=== PATIENT | female | born 1975 | race Caucasian/White ===

== ENCOUNTER → 2021-04-14 08:42 | Outpatient (BNVA) | payer BC, SELFPAY | PROVIDERS: PCP Nurse Practitioner Family; Visit Provider Physician Assistant Surgical ==

== ENCOUNTER → 2021-04-28 08:09 | Outpatient (BNVA) | payer BC, SELFPAY | PROVIDERS: PCP Nurse Practitioner Family; Visit Provider Surgery ==

== ENCOUNTER 2021-05-07 08:49 | Outpatient (REF) | payer BC, SELFPAY ==
--- NOTE | ~2021-05-07 | XR_ITS ---
EXAMINATION: XR CHEST CLINICAL INFORMATION: Obesity COMPARISON: None TECHNIQUE: 2 views of the chest were obtained. FINDINGS: No significant abnormality is noted involving the heart, lungs, mediastinum, bony thorax or soft tissues. XR/XR chest 2V IMPRESSION: Unremarkable examination.
--- NOTE | 2021-05-07 08:57 | ECG_ITS ---
Test Reason : morbid obesity Blood Pressure : / mmHG Vent. Rate : 068 BPM Atrial Rate : 068 BPM P-R Int : 148 ms QRS Dur : 076 ms QT Int : 402 ms P-R-T Axes : 026 020 003 degrees QTc Int : 427 ms Normal sinus rhythm with sinus arrhythmia Low voltage QRS Nonspecific ST abnormality Abnormal ECG No previous ECGs available Referred By: Benjamin Victoria Electronically Signed By:Ricardo Brantley
[2021-05-07 09:09] LABS: MANUAL DIFF FLAG NO
[2021-05-07 10:12] LABS: Alanine Aminotransferase 15 U/L (0-31); Albumin Level 4.4 g/dL (3.5-5.0); Alkaline Phosphatase 73 U/L (39-117); Anion Gap 15 (12-20); Aspartate Amino Transferase 17 U/L (5-31); Bilirubin Total 0.7 mg/dL (0.0-1.0); Blood Urea Nitrogen 14 mg/dL (9-16); C Reactive Protein 2.34 mg/dL (< or = 0.50); Calcium 9.8 mg/dL (8.4-10.2); Carbon Dioxide 23 mmol/L (22-29); Chloride 106 mmol/L (96-108); Cholesterol 235 mg/dL; Estimated Glomerular Filt Rate > 60; Glucose Random 104 mg/dL (60-115); HDL Cholesterol 37 mg/dL; Iron 65 mcg/dL (30-160); LDL Cholesterol Calculated 163 mg/dl; Percent Iron Saturation 16 % (15-50); Potassium 4.7 mmol/L (3.3-5.1); Sodium 139 mmol/L (135-145); Total Iron Binding Capacity 407 mcg/dL (228-428); Triglycerides 176 mg/dL; Unsaturated Iron Binding 342 ug/dL
[2021-05-07 10:21] LABS: Ferritin 98 ng/mL (10-250); Insulin 17 uU/mL (2-29); TSH reflex Free T4 1.41 uIU/mL (0.32-4.0); Vitamin D 25-OH Total 13.6 ng/mL (>30)
[2021-05-07 10:31] LABS: Folate 17.1 ng/mL (> or = 4.0); Vitamin B12 215 pg/mL (200-900)
[2021-05-07 14:23] LABS: Estimated Average Glucose 114 mg/dL; Hemoglobin A1c % 5.6 %
[2021-05-07 14:43] LABS: Basophils Percent Auto 0.2 % (0-2); Eosinophils Absolute Auto 0.1 X10*3/uL (0.0-0.4); Hemoglobin 13.4 g/dl (12.0-16.0); Imm Gran Abs Auto 0.06 X10*3/uL (0.00-0.03); Imm Gran Pct Auto 0.4 % (0.0-0.4); Lymphocytes Absolute Auto 2.5 X10*3/uL (1.2-4.9); Lymphocytes Percent Auto 18.3 % (20-40); Mean Corpuscular HGB Conc 32.7 g/dl (31.0-35.0); Mean Corpuscular Hemoglobin 29.6 pg (27.0-33.0); Mean Corpuscular Volume 90.7 fL (80.0-98.0); Monocytes Absolute Auto 0.7 X10*3/uL (0.1-1.2); Monocytes Percent Auto 4.8 % (2-11); Neutrophils Absolute Auto 10.2 x10*3/uL (2.0-8.3); Neutrophils Percent Auto 75.3 % (45-73); Platelet Count 440 X10*3/uL (160-400); Red Blood Count 4.52 X10*6/uL (4.20-5.50); Red Cell Distribution Width 12.3 % (11.0-16.0); White Blood Count 13.5 X10*3/uL (4.8-10.8)
[2021-05-08 14:42] LABS: H Pylori Breath Test Negative (Negative)
[2021-05-08 15:56] LABS: Calcium (PTHI) 9.7 mg/dL (8.6-10.2); PTHI 35 pg/mL (14-64)
[2021-05-11 06:25] LABS: Vitamin B1 10 nmol/L (8-30)
[2021-05-11 16:11] LABS: Zinc 71 mcg/dL (60-130)
[2021-05-13 14:57] LABS: Vitamin A 47 mcg/dL (38-98)
== END 2021-05-07 08:50 | disposition home or self-care (01) ==
LOC: HO.LAB 08:49
PROVIDERS: Visit Provider Surgery
DX: E66.01 Morbid (severe) obesity due to excess calories (principal); K21.9 Gastro-esophageal reflux disease without esophagitis; G47.30 Sleep apnea, unspecified; I10 Essential (primary) hypertension
CPT/HCPCS: 36415; 71046; 80053; 80061; 82306; 82607; 82728; 82746; 83013; 83036; 83525; 83540; 83970; 84425; 84443; 84590; 84630; 85025; 86140; 93005

== ENCOUNTER → 2021-05-26 07:34 | Outpatient (BNVA) | payer BC, SELFPAY | PROVIDERS: PCP Nurse Practitioner Family; Visit Provider Surgery ==

== ENCOUNTER → 2021-06-02 08:03 | Outpatient (BNVA) | payer BC, SELFPAY | PROVIDERS: PCP Nurse Practitioner Family; Visit Provider Dietitian, Registered | DX: E66.9 Obesity, unspecified (principal) | CPT/HCPCS: 97802 ==

== ENCOUNTER 2021-06-16 09:03 | Outpatient (REF) | payer BC, SELFPAY ==
--- NOTE | ~2021-06-16 | US_ITS ---
EXAMINATION: US COMPLETE ABDOMEN WITH LIVER ELASTOGRAPHY CLINICAL INFORMATION: Obesity COMPARISON: None. TECHNIQUE: Real-time imaging of the abdominal viscera. Noninvasive ultrasound liver fibrosis assessment is performed using [place] point quantification shear wave elastography (2D-SWE) with a C5-2 MHz transducer. Multiple elastography samples are obtained. FINDINGS: PANCREAS: The visualized pancreatic head and body are normal in appearance. The remainder of the pancreas is obscured from visualization by the overlying bowel gas. ABDOMINAL AORTA: The proximal, middle, and distal aortic segments are normal in caliber. INFERIOR VENA CAVA: Visualized portions are normal. LIVER: Liver echotexture is increased. The liver demonstrates normal size, and contour. No focal lesion or intrahepatic biliary duct dilatation. The right lobe measures 16 cm in length. The left lobe measures 13 cm in length. Portal flow is normal/hepatopedal Shear wave liver elastography median stiffness is 1.5 m/s (reference: normal median stiffness is 1.3 m/s or less). IQR/median stiffness to assess sampling precision is 0.12 (reference: good quality data set is IQR/median stiffness of 0.15 or less). GALLBLADDER: Normal. The gallbladder is physiologically distended without evidence of stones, sludge, polyps, wall thickening or pericholecystic fluid. COMMON BILE DUCT: Normal in caliber measuring 0.3 cm in diameter. RIGHT KIDNEY: Normal. No hydronephrosis. No renal calculi or focal parenchymal lesions. The kidney measures 12 cm in maximum dimension. LEFT KIDNEY: Normal. No hydronephrosis. No renal calculi or focal parenchymal lesions. The kidney measures 12 cm in maximum dimension. SPLEEN: Normal. The spleen measures 10 cm in maximum dimension. FREE FLUID: None. US/US abdomen comp w elastography IMPRESSION: 1. Impression: Echogenic liver probably representing fatty infiltration. Limited visualization of the tail the pancreas. 2. Liver elastography: Adequate liver sampling. In the absence of other known clinical signs, rules out compensated advanced chronic liver disease. REFERENCE: Society of Radiologists in Ultrasound Liver Stiffness Thresholds (2020): LIVER STIFFNESS THRESHOLDS: *Liver Stiffness equal or less than 1.3 m/s: High probability of being normal. *Liver Stiffness less than 1.7 m/s: In the absence of other known clinical signs, rules out compensated advanced chronic liver disease. *Liver Stiffness 1.7-2.1 m/s: Suggestive of compensated advanced chronic liver disease but need further test for confirmation. *Liver Stiffness over 2.1 m/s: Rules in compensated advanced chronic liver disease. *Liver Stiffness over 2.4 m/s: Suggestive of clinically significant portal hypertension. QUALITY OF DATA SET: *IQR/Median value equal or less than 0.15 implies a quality data set. *IQR/Median value over 0.15 implies a poor quality data set. SIGNIFICANT CHANGE FROM PRIOR EXAM: Significant change if liver stiffness measurement is 10% or greater from prior exam. OTHER CONSIDERATIONS: The stage of liver fibrosis may be overestimated in the setting of acute hepatitis, liver inflammation, elevated liver function tests, hepatic vascular congestion, obstructive cholestasis, non-fasting state, and infiltrative diseases such as amyloidosis and lymphoma. In some patients with NAFLD, the liver stiffness thresholds for compensated advanced chronic liver disease may be lower. In causes other than viral hepatitis and NAFLD, liver stiffness thresholds are not well established.
--- NOTE | ~2021-06-16 | FL_ITS ---
EXAMINATION: XR FLUOROSCOPY UPPER GI WITH AIR CLINICAL INFORMATION: Obesity COMPARISON: None TECHNIQUE: Upper GI was performed using thin and thick barium and effervescent granules. FINDINGS: Esophageal motility is normal. No hernia or reflux is seen. The stomach and duodenum are normal. No fold thickening, mass, ulcer or stricture is seen. FLUOROSCOPY TIME: 0.6 minutes DOSE AREA PRODUCT: 4 he per centimeter squared. 20 saved fluoroscopic images. FL/FL upper GI w air IMPRESSION: Unremarkable examination.
== END 2021-06-16 09:04 | disposition home or self-care (01) ==
LOC: HO.US 09:03
PROVIDERS: Visit Provider Surgery
DX: E66.01 Morbid (severe) obesity due to excess calories (principal); K21.9 Gastro-esophageal reflux disease without esophagitis; G47.30 Sleep apnea, unspecified; I10 Essential (primary) hypertension
CPT/HCPCS: 74246; 76705; 76981

== ENCOUNTER → 2021-06-22 08:56 | Outpatient (REF) | payer BC, SELFPAY ==
--- NOTE | 2021-06-22 11:51 | CA_ITS ---
Acquisition Time: 2021-06-22 09:19:26 Total Exercise Time: 00:06:29 Test Indications: PREOP Medications: SEE CHART Protocol: AMBER Max HR: 162 BPM 92% of Pred: 176 BPM Max BP: 212/092 mmHG Max Work Load: 7.7 METS Exercise stress tet with exercise 6 min 29 sec of Amber protocol, without anginal symptoms, without arrythma, with hypertensive response to exercise with max BP 212/92, without EKG changes meeting criteria for ischemia. In recovery BP returned back to normal range. Test reviewed with Dr Ahmadi. Referred By: Benjamin Victoria Overread By: QUIQUE VENEGAS
== END ==
LOC: HO.CARD 08:56
PROVIDERS: Visit Provider Surgery
DX: R94.31 Abnormal electrocardiogram [ECG] [EKG] (principal); E66.9 Obesity, unspecified; Z68.36 Body mass index [BMI] 36.0-36.9, adult
CPT/HCPCS: 93017

== ENCOUNTER → 2021-07-06 08:14 | Outpatient (BNVA) | payer BC, SELFPAY | PROVIDERS: PCP Nurse Practitioner Family; Referring Provider Surgery; Visit Provider Dietitian, Registered | DX: E66.01 Morbid (severe) obesity due to excess calories (principal) | CPT/HCPCS: 97803 ==

== ENCOUNTER → 2021-07-13 09:25 | Outpatient (REF) | payer BC, SELFPAY ==
--- NOTE | 2021-07-13 09:29 | CA_ITS ---
Transthoracic Echocardiogram Patient (Last, First, Middle): Violeta Malone, Gender: Female Date of : 1975 Age: 46 Procedure Date: 07/13/2021 Procedure Type: Transthoracic Echocardiogram Location: OP Height: 160.02 cm Weight: 92.08 kg BSA: 1.95 m2 Heart Rate: bpm BP: 150 / 105 mmHg [employer]: LYNN Referring MD: Benjamin Victoria MD Concession Stand Attendant: Kilo Ahmadi MD Symptoms: R94.31 - Abnormal electrocardiogram [ECG] [EKG] Study Quality: Fair ECG Rhythm: Sinus Conclusions: - essentially normal study Findings Left Ventricle Normal left ventricular size, thickness, and systolic function. The visually estimated ejection fraction is between 60-65%. Regional wall motion abnormalities can not be excluded due to suboptimal endocardial definition. Spectral Doppler is indicative of a normal filling pattern. Right Ventricle Normal right ventricular cavity size and systolic function. Atria The left atrium is normal in size. There is no evidence of interatrial shunt. The right atrium is normal in size. Aortic Valve The aortic valve structure and function is likely normal. There is no aortic valve stenosis. There is no aortic valve regurgitation. Mitral Valve Likely normal mitral valve structure and function. There is trace mitral valve regurgitation. There is no mitral valve stenosis. Pulmonic Valve The pulmonic valve was not well visualized. Tricuspid Valve Likely normal tricuspid valve structure and function. The right ventricular systolic pressure is normal. There is no evidence of pulmonary hypertension. Great Vessels All visible segments of the aorta are normal in size. The pulmonary artery was not well visualized. Venous The inferior vena cava is normal in size and collapses greater than 50% with inspiration. Pericardium/Pleural There is no evidence of pericardial effusion. Prior Study Comparison No prior study available for comparison. Measurements 2D Linear Measurements IVSd: 1.11 0.6-0.9/0.6-1.0 cm LVIDd: 4.88 3.9-5.3/4.2-5.9 cm LVIDd Index: 2.50 2.4-3.2/2.2-3.1 cm/m2 LVIDs: 3.08 2.0-3.6 cm LVPWd: 1.04 0.7-1.1 cm Ao Root: 2.80 2.1-3.5 cm LA Diam: 3.80 2.7-3.8/3.0-4.0 cm LAIDs Index: 1.95 1.5-2.3 cm/m2 LV Mass: 240.46 67-162/88-224 g LV Mass Index: 123.31 43-95/49-115 g/m2 LVOT Diam: 2.00 3.0+(-)1.3 cm 2D Systolic Function EF 4C: 60.00 >55% EF 2C: 66.50 >55% EF BiP: 63.00 >55% Mitral Valve MV Pk E: 0.72 MV PK A: 0.69 MV Decel Time: 158.00 E/A: 1.10 E'Lateral: 10.90 E'Medial: 9.90 E/E' Med: 7.30 E/E' Lat: 6.60 PHT: 46.00 MVA PHT: 4.78 Decel [place]: 4.60 Aortic Valve AoV Pk Lexa: 1.53 AoV Mn Lexa: 1.12 AoV VTI: 0.33 AoV Pk Grad: 9.00 Aov Mn Grad: 6.00 TAISHA Cont.VTI: 2.39 LVOT LVOT Pk Lexa: 1.23 LVOT Mn Lexa: 0.83 LVOT VTI: 0.25 LVOT Pk Grad: 6.00 LVOT Mn Grad: 3.00 LVOT Diam: 2.00 LVOT Area: 3.14 Diastolic Function MV Pk E: 0.72 MV Pk A: 0.69 E/A: 1.10 E'Medial: 9.90 E/E' Med: 7.30 E' Laterial: 10.90 E/E' Lat: 6.60 Right Ventricle TAPSE (mm): 18.40 TVS' Lexa: 10.40 Tricuspid Valve TR Pk Lexa: 1.41 TR Pk Grad: 8.00 RA Press: 3.00 RVSP: 11.00 Great Vessels Aorta Ao Root-2D: 2.80 2.0-3.7 cm Ao Asc: 3.20 2.1-3.4 cm Ao Arch: 3.10 Updated in Other Vendor System with Status of Final Kilo Ahmadi MD electronically signed on 07/13/2021 12:22:46 PM with status of Final
== END ==
LOC: HO.CARD 09:25
PROVIDERS: Visit Provider Surgery
DX: R94.31 Abnormal electrocardiogram [ECG] [EKG] (principal)
CPT/HCPCS: 93306

== ENCOUNTER → 2021-07-15 08:19 | Outpatient (BNVA) | payer BC, SELFPAY | PROVIDERS: PCP Nurse Practitioner Family; Visit Provider Surgery ==

== ENCOUNTER → 2021-08-17 07:40 | Outpatient (BNVA) | payer BC, SELFPAY | PROVIDERS: PCP Nurse Practitioner Family; Visit Provider Surgery | DX: Z13.89 Encounter for screening for other disorder (principal) ==

== ENCOUNTER → 2021-08-21 12:51 | Outpatient (BNVA) | payer BC, SELFPAY | PROVIDERS: PCP Nurse Practitioner Family; Visit Provider Surgery | DX: Z13.89 Encounter for screening for other disorder (principal) ==

== ENCOUNTER 2021-08-25 08:10 | Inpatient (IN) | payer BC, SELFPAY ==
[2021-08-18 15:58] VITALS: BMI 33.8
[2021-08-20 11:03] LABS: MANUAL DIFF FLAG NO
[2021-08-20 11:16] LABS: Basophils Absolute Auto 0.1 X10*3/uL (0.0-0.2); Basophils Percent Auto 0.4 % (0-2); Eosinophils Absolute Auto 0.1 X10*3/uL (0.0-0.4); Hematocrit 44.3 % (37.0-47.0); Hemoglobin 14.7 g/dl (12.0-16.0); INTERNATIONAL NORM RATIO 1.1 (0.9-1.1); Imm Gran Abs Auto 0.07 X10*3/uL (0.00-0.03); Imm Gran Pct Auto 0.5 % (0.0-0.4); Lymphocytes Absolute Auto 2.8 X10*3/uL (1.2-4.9); Lymphocytes Percent Auto 19.1 % (20-40); Mean Corpuscular HGB Conc 33.2 g/dl (31.0-35.0); Mean Corpuscular Hemoglobin 29.5 pg (27.0-33.0); Monocytes Absolute Auto 0.8 X10*3/uL (0.1-1.2); Monocytes Percent Auto 5.2 % (2-11); Neutrophils Absolute Auto 10.7 x10*3/uL (2.0-8.3); Neutrophils Percent Auto 73.8 % (45-73); Platelet Count 500 X10*3/uL (160-400); Prothrombin Time 12.3 SEC (9.9-13.0); Red Blood Count 4.98 X10*6/uL (4.20-5.50); Red Cell Distribution Width 12.2 % (11.0-16.0); White Blood Count 14.5 X10*3/uL (4.8-10.8)
[2021-08-20 11:19] LABS: Partial Thromboplastin Time 36.9 SEC (24.1-38.0)
[2021-08-20 11:29] LABS: Estimated Average Glucose 111 mg/dL; Hemoglobin A1c % 5.5 %
[2021-08-20 12:34] LABS: Alanine Aminotransferase 20 U/L (0-31); Albumin Level 4.9 g/dL (3.5-5.0); Alkaline Phosphatase 79 U/L (39-117); Anion Gap 19 (12-20); Aspartate Amino Transferase 17 U/L (5-31); Bilirubin Total 1.8 mg/dL (0.0-1.0); Blood Urea Nitrogen 19 mg/dL (9-16); C Reactive Protein 2.59 mg/dL (< or = 0.50); Calcium 10.7 mg/dL (8.4-10.2); Carbon Dioxide 24 mmol/L (22-29); Chloride 100 mmol/L (96-108); Cholesterol 228 mg/dL; Creatinine Clr Calc Pharmacy 76.2; Estimated Glomerular Filt Rate > 60; Glucose Random 99 mg/dL (60-115); HDL Cholesterol 34 mg/dL; LDL Cholesterol Calculated 164 mg/dl; Potassium 4.5 mmol/L (3.3-5.1); Sodium 138 mmol/L (135-145); TSH reflex Free T4 1.28 uIU/mL (0.32-4.0); Total Protein 8.7 g/dL (6.5-8.0); Triglycerides 151 mg/dL
[2021-08-20 13:07] LABS: Insulin 12 uU/mL (2-29)
--- NOTE | 2021-08-22 00:17 | MHC.SHP ---
Pre-Procedural Eval Section A Date of Service: 08/22/21 The patient is an INPATIENT: Yes The History & Physical has been completed within 30 days and I have reviewed it.: Yes Section B Chief Complaint: obesity Relevant Family History (Specify if Yes): No Relevant Social History: None Present Medications: None Medical History: No relevant PMH History of Previous Operations: No relevant previous surgery Allergies: Allergies Allergy/AdvReac Type Severity Reaction Status Date / Time Seasonal Allergies Allergy Mild runny Verified 08/17/21 09:13 nose, itchy and watery eyes Review of Systems Sugical H&P ROS: Negative: Constitution, Cardiovascular, Respiratory, Neurological, Psychiatric, Hem-Onc, Allergic/Immunologic, Gastrointestinal, Genitourinary, Musculoskeletal, Integumentary, Endocrine and Eyes/Ears/Nose/Throat Exam Surgical H&P Exam: Normal: HEENT, Normal: Heart, Normal: Lungs, Normal: Extremities, Normal: Abdomen, Normal: Skin and Normal: Neurological Plan Diagnosis/Plan: Unchanged I have reviewed the history and physical and performed a pertinent physical examination on my patient. No changes have occurred unless specified.
--- NOTE | 2021-08-24 10:16 | P.CONAN_ITS ---
Documented by User: Maria T Craven NP 08/24/21 10:18 HPI - Anesthesia Eval Consult details Narrative: 46yo F for Gastrectomy Sleeve,EGD,poss diaphragmatic hernia,poss ventral hernia,poss open, PMFSH Active Problems Active Problems: All Active Problems (Updated 08/18/21 @ 15:53 by Jaja Bertrand RN) Adjustment disorder, unspecified (Acute) Obesity (Acute) BMI 36.0-36.9,adult (Acute) Vitamin D deficiency (Acute) Abnormal EKG (Acute) BMI 35.0-35.9,adult (Acute) BMI 34.0-34.9,adult (Acute) Vitamin B12 deficiency (Acute) GERD (gastroesophageal reflux disease) (Acute) Sleep apnea with use of continuous positive airway pressure (CPAP) (Acute) Hypertension (Acute) Morbid obesity (Acute) Past Medical History Medical History (Updated 08/25/21 @ 10:43 by Benjamin Victoria MD) Dry mouth GERD (gastroesophageal reflux disease) Hypertension Morbid obesity PONV (postoperative nausea and vomiting) Sleep apnea with use of continuous positive airway pressure (CPAP) Steatosis, liver Thrombocytosis Vitamin B12 deficiency Family History Family History (Updated 04/28/21 @ 11:28 by Vidya Christy) Mother Acute Crohn's disease Father Hypertension High cholesterol Brother Lupus Surgical History Surgical History (Updated 08/25/21 @ 12:48 by Latisha Randall PA-C) Hx of breast reduction, elective Hx of cosmetic surgery Hx of hysterectomy Social History Social History (Updated 04/28/21 @ 11:29 by Vidya Christy) Are you a primary career coach to a significant other at home: No Do you presently have visiting nurse or other home services: No Alcohol intake: current Alcohol intake frequency: does not drink Patient Tobacco Use Status: Never used Tobacco Use of substances other than those prescribed or required for medical reasons: No Have you been hit, kicked, punched, or otherwise hurt by someone within the past year? If so, by whom?: No Are you DNR?: No Advance Directives: No Advance Directives Information Provided: No Advance Directives on File: No Recently lost weight without trying: No How much weight loss: 14-23 pounds Eating poorly because of decreased appetite: No Nutrition screen score: 2 Nutrition Risks: No Nutritional Risk Patient : No FDLMP: Hysterectomy : No Meds Allergies Allergy/AdvReac Type Severity Reaction Status Date / Time Seasonal Allergies Allergy Mild runny Verified 08/17/21 09:13 nose, itchy and watery eyes Home Medications Medication Instructions Recorded Confirmed Last Taken Type benazepril 20 1 tab PO DAILY 08/25/21 08/25/21 Unknown History mg-hydrochlorothiazide 12.5 mg tablet Exam Exam Date and Time: August 24, 2021 1016 Height,Weight and Vital Signs: Height 5 ft 3.5 in Weight 87.997 kg Pertinent Lab Results Pertinent Lab Results: Laboratory Tests 08/20/21 08/20/21 08/20/21 10:55 10:55 10:55 WBC 14.5 H RBC 4.98 Hgb 14.7 Hct 44.3 MCV 89.0 MCH 29.5 MCHC 33.2 RDW 12.2 Plt Count 500 H MPV 11.0 Immature Gran % (Auto) 0.5 H Neut % (Auto) 73.8 H Lymph % (Auto) 19.1 L [place] % (Auto) 5.2 Eos % (Auto) 1.0 Baso % (Auto) 0.4 Lymph # (Auto) 2.8 [place] # (Auto) 0.8 Eos # (Auto) 0.1 Baso # (Auto) 0.1 Abs Immat Gran (auto) 0.07 H Absolute Neuts (auto) 10.7 H Absolute Nucleated RBC 0.000 Nucleated RBC % (auto) 0.0 PT 12.3 INR 1.1 APTT 36.9 Sodium 138 Potassium 4.5 Chloride 100 Carbon Dioxide 24 Anion Gap 19 BUN 19 H Creatinine 0.99 Estim Creat Clear Calc 76.2 Estimated GFR > 60 Random Glucose 99 Estimat Average Glucose Hemoglobin A1c % Insulin Level 12 Calcium 10.7 H D Total Bilirubin 1.8 H AST 17 ALT 20 Alkaline Phosphatase 79 C-Reactive Protein 2.59 H Total Protein 8.7 H Albumin 4.9 Triglycerides 151 Cholesterol 228 LDL Cholesterol, Calc 164 HDL Cholesterol 34 TSH 1.28 Blood Type Antibody Screen 08/20/21 08/20/21 10:55 10:55 WBC RBC Hgb Hct MCV MCH MCHC RDW Plt Count MPV Immature Gran % (Auto) Neut % (Auto) Lymph % (Auto) [place] % (Auto) Eos % (Auto) Baso % (Auto) Lymph # (Auto) [place] # (Auto) Eos # (Auto) Baso # (Auto) Abs Immat Gran (auto) Absolute Neuts (auto) Absolute Nucleated RBC Nucleated RBC % (auto) PT INR APTT Sodium Potassium Chloride Carbon Dioxide Anion Gap BUN Creatinine Estim Creat Clear Calc Estimated GFR Random Glucose Estimat Average Glucose 111 Hemoglobin A1c % 5.5 Insulin Level Calcium Total Bilirubin AST ALT Alkaline Phosphatase C-Reactive Protein Total Protein Albumin Triglycerides Cholesterol LDL Cholesterol, Calc HDL Cholesterol TSH Blood Type A Positive Antibody Screen NEGATIVE Narrative Narrative: EKG 04/2021 Vent. Rate : 068 BPM ? ? Atrial Rate : 068 BPM ?? P-R Int : 148 ms? QRS Dur : 076 ms ? ? QT Int : 402 ms ? ? ? P-R-T Axes : 026 020 003 degrees ?? QTc Int : 427 ms ? Normal sinus rhythm with sinus arrhythmia Low voltage QRS Nonspecific ST abnormality Abnormal ECG No previous ECGs available Exercise Stress 05/2021 Protocol: DESHAWN ? Max HR: 162 BPM? 92% of? Pred: 176 BPM Max BP: 212/092 mmHG Max Work Load: 7.7 METS ? Exercise stress tet with exercise 6 min 29 sec of Deshawn protocol, without ?anginal symptoms, without arrythma, with hypertensive response to exercise with ?max BP 212/92, without EKG changes meeting criteria for ischemia. In recovery ?BP returned back to normal range. Test reviewed with Dr Ahmadi. Echo 06/2021 Conclusions: - essentially normal study ? ? Assessment and Plan Assessment Anesthesia Assessment: Chart Reviewed Documented by User: Fernando Velasquez MD 08/25/21 17:25 [facility] Past Medical History Medical History (Updated 08/25/21 @ 10:43 by Benjamin Victoria MD) Dry mouth GERD (gastroesophageal reflux disease) Hypertension Morbid obesity PONV (postoperative nausea and vomiting) Sleep apnea with use of continuous positive airway pressure (CPAP) Steatosis, liver Thrombocytosis Vitamin B12 deficiency Functional capacity: independent ambulation Family History Family History (Updated 04/28/21 @ 11:28 by Vidya Christy) Mother Acute Crohn's disease Father Hypertension High cholesterol Brother Lupus Family history of problems with anesthesia: No Surgical History Surgical History (Updated 08/25/21 @ 12:48 by Latisha Randall PA-C) Hx of breast reduction, elective Hx of cosmetic surgery Hx of hysterectomy History of Problems with Anesthesia: Yes (Ponv ) Social History Social History (Updated 04/28/21 @ 11:29 by Vidya Christy) Are you a primary career coach to a significant other at home: No Do you presently have visiting nurse or other home services: No Alcohol intake: current Alcohol intake frequency: does not drink Patient Tobacco Use Status: Never used Tobacco Use of substances other than those prescribed or required for medical reasons: No Have you been hit, kicked, punched, or otherwise hurt by someone within the past year? If so, by whom?: No Are you DNR?: No Advance Directives: No Advance Directives Information Provided: No Advance Directives on File: No Recently lost weight without trying: No How much weight loss: 14-23 pounds Eating poorly because of decreased appetite: No Nutrition screen score: 2 Nutrition Risks: No Nutritional Risk Patient : No FDLMP: Hysterectomy : No Meds Allergies Allergy/AdvReac Type Severity Reaction Status Date / Time Seasonal Allergies Allergy Mild runny Verified 08/17/21 09:13 nose, itchy and watery eyes Home Medications Medication Instructions Recorded Confirmed Last Taken Type benazepril 20 1 tab PO DAILY 08/25/21 08/25/21 Unknown History mg-hydrochlorothiazide 12.5 mg tablet Exam Airway Mallampati Class: II TM Dist: >3cm Neck ROM: Full Loose/Missing/Broken Teeth: Yes (Fillings ) Heart: rrr Lungs: b/l breath sounds Assessment and Plan Assessment Anesthesia Assessment: Anesthesia Plan Discussed Final Anesthetic Review Family History of Problems with Anesthesia: No History of Problems with Anesthesia: Yes (Ponv ) NPO: Yes ASA Class: III Final Preanesthetic Review: No Changes in Pt Med Stat, Meds/Allgs Chart Reviewed, Consent Obtained/Reviewed and Anes Risks/Benef Reviewed Patient Risk: Intermediate Procedure Risk: Intermediate Anesthetic Plan Anesthetic Plan: GA Disposition: Inp. Admit - [place] Bed
[2021-08-24 12:46] LABS: COVID-19 Test Negative (Negative); IDNOW Serial# 08D9AD1C
[2021-08-25] VITALS (19 sets, daily range): BP systolic 139–186; BP diastolic 67–108; PULSE 77–112; RESP 14–18; TEMP 36.5–36.7; O2SAT 96–100
[2021-08-25] MEDS: Scopolamine 1.5 MG PATCH.TD.3 TRANSDERMA (09:15)
[2021-08-25] MEDS: Lactated Ringers 1,000 ML 100 ML IVCONT ×2 (09:15→15:00)
[2021-08-25] MEDS: Lactated Ringers 1,000 ML 999 ML IV (09:16)
--- NOTE | 2021-08-25 10:39 | P.BOP_ITS ---
Brief Operative Note Date of Service: 08/25/21 Pre-op diagnosis: Severe obesity with comorbidities (see below) Post-op diagnosis: same Procedure: INITIAL PATIENT BMI ON PRESENTATION AT OUR OFFICE: 36.5 kg/m2 LAST BMI BEFORE SURGERY: 34.1 kg/m2 COMORBIDITIES: sleep apnea on CPAP, hypertension, GERD, liver steatosis, thrombocytosis, liver steatosis ?The patient presented to the Weight Management Program with significant obesity that was negatively impacting the patient's comorbidities as listed above.? The program is a phased program with a special focus on preoperative medical weight management to promote substantial weight loss and prepare the patients for the second phase of the program: bariatric surgery. The patient participated in an intensive weekly lifestyle ?intervention and exercise program during which the patient ?has lost between the initial office visit and the last preoperative visit 17.2lbs, or 8.21% of initial actual body weight. It was deemed appropriate for the patient to now have bariatric surgery. In light of the current Covid-19 pandemic and the well documented strong association of obesity and increased risk of worse outcomes if infected with Covid-19 (REFERENCES: https://pubmed.ncbi.nlm.nih.gov/61394995/ ,? https://pubmed.ncbi.nlm.nih.gov/23137091/ ), any delay in undergoing bariatric surgery may lead to the patient's worsening health condition and increased?risk of more severe Covid-19 disease if infected. In addition a recent?study from [facility] published in [facility] on 05/25/2021 ([email or web address] [id number]) found that, among patients with obesity, substantial weight loss achieved with surgery was associated with improved outcomes of COVID-19 infection. The findings suggest that obesity can be a modifiable risk factor for the severity of COVID-19 infection. In addition, the patient met the BMI-criteria for bariatric surgery based on the BMI on initial presentation. The patient should not be penalized for achieving such weight loss because ?it is not sustainable long-term without surgical intervention and it was achieved in preparation for bariatric surgery ?under my direction and based on my published research ([email or web address]).[email or web address] and? [email or web address].soard.org/article/[email or web address])56830-X/pdf ) ?that a 10% preoperative weight loss improves long-term weight loss after surgery and reduces perioperative complications.? Insurance carriers such as [facility] have endorsed my recommendations ?and have included in their policies criteria to include a 10% preoperative weight loss requirement. PROCEDURE: Esophago-gastroscopy, laparoscopic sleeve gastrectomy and laparoscopic gastropexy INDICATIONS: This is a 46 year-old female who was electively scheduled for laparoscopic, possibly open sleeve gastrectomy. The risks and complications of the procedure were discussed with the patient in advance, particularly the possibility of ; pulmonary embolism; staple line leak; bleeding; GERD; cardiac, pulmonary, or renal complications; as well as long-term problems such as insufficient weight loss, vitamin deficiency, strictures, or ulcers. The patient understood all the risks, and was in agreement to proceed with surgery. DESCRIPTION OF PROCEDURE: After informed consent was obtained from the patient, the patient was given preoperative antibiotics, and was transferred to the operating room. After successful induction of general anesthesia, pneumatic compression devices were placed on both lower extremities. An upper endoscopy was performed next. The oropharynx and esophagus appeared to be within normal limits. There was no diaphragmatic hernia present, consistent with the findings of the preoperative upper GI. The stomach was entered. Then after all fluid and air were suctioned and the stomach was fully decompressed, the scope was withdrawn and secured in the mid esophagus. The patient was then prepped and draped in the usual sterile manner, and abdominal access was established at the right upper quadrant with the Ra technique. A 12 mm blunt port was inserted, and the abdomen was insufflated with CO2 to a pressure of 15 mmHg. Under direct visualization, additional ports were placed, specifically two 5 mm Versi-step ports to the left upper quadrant, and a 5 mm Versi-Step port to the right upper quadrant. 1% lidocaine plain was used to infiltrate all port sites as well as all fascia defects. Following that, the patient was placed in a steep reverse Trendelenburg positi on. An additional 5 mm port was placed to the right flank for the Mediflex retractor that was used to retract the left lobe of the liver. The gastro-esophageal fat pad was opened with the ultrasonic device (Thunderbeat, Olympus) and the anterior esophagus and hiatus were exposed. The angle of His was opened with the ultrasonic device the fundus of the stomach from any diaphragmatic and splenic attachments. I then opened the gastrocolic ligament between the transverse colon and the greater curvature of the stomach with the ultrasonic device to enter the lesser sac and facilitate the ligation of the short gastric vessels. I started at a mid-point along the greater curvature and using the Thunderbeat, all short gastric vessels were divided all the way to the angle of His until the left bnei was completely dissected at its entirety. I then divided the gastro-colic ligament distally to a distance of about 3-4 cm proximal to the pylorus. The stomach was then divided transversely with one Endo CLAUDIA-45 purple, one CLAUDIA- 45 orange loads and three CLAUDIA-60 articulating orange loads using the AEON stapler and loads. Every effort was made that the gastric sleeve had a tubular shape and an even caliber throughout. Once the sleeve resection was completed, the staple line of the gastric sleeve was reinforced with Hemoclips. The resected stomach was retrieved without difficulty from the Ra port. A gastropexy was then performed in order to prevent postoperative GERD and partial gastric volvulus. Several interrupted 2.0 Surgidac sutures were placed between the sleeve's staple line and the previously divided greater omentum and gastro-colic ligament using the Endo-Stitch device. ?An upper endoscopy was performed. There was no narrowing at the GE junction. The scope was easily advanced all the way to the pylorus which was clearly visualized. There was no narrowing anywhere and the sleeve's caliber was even throughout. The sleeve's staple line was inspected and there was no evidence of ischemia, bleeding or dehiscence. At that point the gastroscope was withdrawn from the patient?s mouth while we were decompressing the bowel and the stomach from any remaining air. I looked into the lesser sac to see how the sleeve was situating and it was situating well. There was no bleeding from the staple line, spleen, or short gastric vessels. The Mediflex retractor was removed, and the undersurface of the liver was inspected and there was no bleeding. The patient was placed in supine position. I closed the fascial defect of the 12 mm port site with a figure of eight #1 Polysorb suture. Then 100 cc 0.25 % Marcaine plain with 10 mg of Dexamethasone were used to infiltrate the fascial closure as well as all skin incisions. At this point, the abdomen was deflated, all ports were removed under direct vision, and no bleeding was noted from any of the port sites. The skin incisions were irrigated with saline and were closed with 4-0 absorbable monofilament sutures. Steri-Strips and OpSites were used to cover all incisions. The patient was extubated and was transferred in stable condition to the recovery room for further care. I was present and performed all bethea parts of the procedure. Ms. Randall was the parking assistant. There were no residents to assist with this case. Mike Victoria MD, PhD, FACS Surgeon: Benjamin Victoria MD Anesthesia: GETA, local and other (TAP block) Was an Race Board Attendant used for this Procedure?: No Race Board Attendant: Latisha Randall Estimated blood loss (mL): 10 IV fluids (mL): 3,000 Urine output (mL): 0 (No Garcia to record) Pathology: other (Stomach) Condition: stable Disposition: PACU
--- NOTE | 2021-08-25 10:41 | PM.PNGS ---
Subjective Subjective Date of Service: 08/26/21 Interval history: Patient has mild incisional pain, but was able to ambulate and use the incentive spirometer. She is tolerating phase 1 bariatric diet Physical Exam Vital Signs: Vital Signs: Last Vital Signs Temp 97.7 F 08/25/21 09:06 Pulse 92 08/25/21 09:06 Resp 18 08/25/21 09:06 BP 143/67 H 08/25/21 09:06 Pulse Ox 99 08/25/21 09:06 BMI result Body Mass Index 33.8 GI: Inspection: Yes normal to inspection, Yes incision (clean, dry and intact) and Yes obesity Extrem: Right lower extremity: normal to inspection (no calf tenderness) Left lower extremity: normal to inspection (no calf tenderness) Objective Data Active Medications Lactated Ringer's (Lr) 1,000 mls @ 100 mls/hr IVCONT .Q10H ALVERTO Last Admin: 08/25/21 09:15 Dose: 100 mls/hr Documented by: TAYO Labs CBC & Chem 7: 08/26/21 05:31 08/26/21 05:31 Labs: Laboratory Results - last 24 hr 08/24/21 12:10 COVID-19 (ANASTASIA) Negative COVID-19 Clin Com See Note Procedures Date of Service Date of Service: 08/26/21 Progress Note: A&P Assessment and plan (1) Obesity: Status: Acute Assessment and Plan: s/p laparoscopic sleeve gastrectomy, lysis of adhesions repair of diaphragmatic hernia, and gastropexy Doing well Check am labs. If OK, will discharge home? (2) BMI 34.0-34.9,adult: Status: Acute (3) Hypertension: Status: Acute (4) Sleep apnea with use of continuous positive airway pressure (CPAP): Status: Acute (5) GERD (gastroesophageal reflux disease): Status: Acute (6) Steatosis, liver: Status: Acute (7) Thrombocytosis: Status: Acute (8) S/P laparoscopic sleeve gastrectomy: Status: Acute Fall Risk Details Current Medications: Current Medications Lactated Ringer's (Lr) 1,000 mls @ 100 mls/hr IVCONT .Q10H ALVERTO Last Admin: 08/25/21 09:15 Dose: 100 mls/hr Documented by: Time Spent With Patient Time: Total time spent is greater than 50% in coordination of care (as documented) at patient's floor/unit and/or counseling patient: Quality Stroke Does the patient have a stroke diagnosis?: No VTE Prior VTE?: No VTE Risk Level:: Surgical - moderate VTE Device Contraindication: N/A - Device Ordered VTE Drug Contraindication: Treatment Not Indicated
[2021-08-25] MEDS: ceFAZolin Sodium/Dextrose,Iso 2 GM/50 ML PIGGYBACK IV ×2 (11:00→15:56)
--- NOTE | 2021-08-25 12:53 | P.DS_ITS ---
DS: Providers Provider Date of Service: 08/26/21 Date of admission: 08/25/21 08:10 Primary care physician: Janene Rea NP DS: Diagnosis Discharge Diagnosis (1) Obesity: Status: Acute (2) BMI 34.0-34.9,adult: Status: Acute (3) Hypertension: Status: Acute (4) Sleep apnea with use of continuous positive airway pressure (CPAP): Status: Acute (5) GERD (gastroesophageal reflux disease): Status: Acute (6) Steatosis, liver: Status: Acute (7) Thrombocytosis: Status: Acute DS: Summary Hospital Course Hospital Course: ADMITTING DIAGNOSIS: morbid obesity, HTN, CARLOS, GERD DISCHARGE DIAGNOSIS: same, s/p laparoscopic sleeve gastrectomy PAST SURGICAL HISTORY: hysterectomy, breast reduction PROCEDURE: upper endoscopy, laparoscopic sleeve gastrectomy DISCHARGE SUMMARY: History of Present Illness: The patient is a 46 year-old woman with a BMI of 36.5 kg/m2 and associated co- morbidities as described above. The patient had extensive work-up,lost 15 lbs preoperatively and was electively scheduled for laparoscopic, possible open sleeve gastrectomy and gastropexy. Risks and complications of the surgery were discussed with the patient in advance, particularly the possibility of , pulmonary embolism, anastomotic leak, bleeding, bowel injury, GERD, cardiac, renal or pulmonary complications. The patient understood all the risks and was in agreement with the surgical plan. Hospital Course: The patient underwent an uneventful laparoscopic sleeve gastrectomy with gastropexy on the day of admission. Postoperatively, the patient was transferred to the surgical floor. The patient received IV Acetaminophen and IV dilaudid for pain control. Patient was started on bariatric phase 1 diet POD #0. On postoperative day one, the patient was feeling well without nausea, vomiting, fevers, or tachycardia. The patient had some mild incisional pain and the abdomen was soft. On the morning of postoperative day one, the patient was continued on 1 ounce of water or ice every half hour. During the day, the patient did fairly well, having some incisional pain, but able to ambulate adequately and to tolerate liquids well. Since the patient is doing well, we decided that the patient was ready to be discharged. The patient was given instructions to follow-up with me next week and to call my office for any fever over 101, persistent abdominal pain, nausea, vomiting, GERD, symptoms of DVT such as calf tenderness, or leg swelling, or pulmonary embolism such as chest pain or shortness of breath. The patient was also instructed to drink 40-60 ounces of liquids per day using the 1-ounce cups. The patient had been given prescriptions for Tylenol for pain, Zofran prn for nausea, and pantoprazole and carafate previously. The patient was encouraged to ambulate and use the incentive spirometer. The patient was allowed to shower, but no baths, and encouraged to stay active at home. All of these instructions were given to the patient personally. All questions were answered and the patient understood all instructions, the instructions were also given to the patient in print. Time Spent with Patient Time attestation: Total time spent providing and/or coordinating discharge services: Discharge coordination time: Less than 30 minutes Quality: Stroke Does the patient have a stroke diagnosis?: No Physical Exam Vital Signs: Vital Signs: Last Vital Signs Temp 97.7 F 08/25/21 09:06 Pulse 92 08/25/21 09:06 Resp 18 08/25/21 09:06 BP 143/67 H 08/25/21 09:06 Pulse Ox 99 08/25/21 09:06 BMI result Body Mass Index 33.8 DS: Data Data Completed and Pending Pending studies at discharge: Pending at discharge 08/25/21 12:47 Surgical [PTH] Routine Discharge Plan Discharge Anticipated Discharge Date/Time: 08/25/21 12:47 Patient Disposition: Home, Self-Care Discharge Diagnosis: s/p sleeve gastrectomy Referrals: Janene Rea, GLUING MACHINE OPERATOR [Primary Care Provider] - 1 Week Discharge Medications: Continued benazepril-hydrochlorothiazide 20-12.5 mg tablet 1 tab PO DAILY 0RF pantoprazole 40 mg tablet,delayed release (DR/EC) 40 mg PO DAILY Qty: 30 2RF sucralfate 100 mg/mL suspension 10 ml PO BID Qty: 400 2RF ondansetron HCl 4 mg tablet 4 mg PO Q12H Qty: 20 0RF Discontinued cholecalciferol (vitamin D3) 125 mcg (5,000 unit) capsule 125 mcg PO DAILY Qty: 30 2RF mecobalamin (vitamin B12) 1,000 mcg tablet,disintegrating 1,000 mcg sublingual DAILY Qty: 30 2RF Rx Instructions: place tablet under tongue and allow to dissolve for at least30 secs before swallowing polyethylene glycol 3350 [Miralax] 17 gram powder in packet 17 g PO DAILY Qty: 14 0RF Rx Instructions: Mix each packet with 8oz of water and do 7 packets on 08/23/21 and another 7 packets on 08/24/21 Discharge Orders: Discharge Order (Routine); Ordered 08/26/21 Ordered By: Benjamin Victoria Diet: other Activity on Discharge: No heavy lifting Stand Alone Forms: Patient Portal Discharge page Care Plan Goals: weight loss Health Concerns: morbid obesity Plan of Treatment: No tub baths, sex or returning to work until discussed at first post op appointment. No exercise, alcohol, tobacco or illegal drug use. Continue to use incentive spirometer hourly while awake. Walk in home for 5- 10 minutes every 2 hours during the first week. Continue phase 1 diet today and start phase 2 diet tomorrow morning. Follow all instructions in the bariatric handbook and call with any questions. 1. Please call your doctor or come back to the emergency room should any new symptoms arise. 2. You will receive a courtesy call from [facility] 24-48 hours after discharge. 3. Activity: abstain from alcohol, practice limited stair climbing, no bending, no driving, no exercise, no illicit substances, no lifting, no sex, no tub bath, no work. 4. Diet: continue as discussed with Dr. Victoria. 5. Dressing Change/Wound Care: Do not change or remove surgical dressings unless they are wet or soiled. 6. Call your doctor if: - Your temperature exceeds 101.5 F - You experience excessive pain or swelling - You have an unexpected reaction to medication - You have excessive bleeding - You experience continued vomiting/nausea - Your incision begins to separate - Your incision shows signs of infection such as increased redness, swelling, excessive pain, heat, or drainage (light blood or clear fluid is normal) 7. General instructions: No lifting greater than 5 lbs for the next 4 weeks[address] driving within 24 hours of taking narcotic pain medications. If you do not move your bowels in the next 2 days, please take milk of magnesia over the counter. Please follow the post op diet and do not advance your diet until you are seen in the office in about 2 weeks. Please walk around your home every hour or two to prevent blood clots from forming in your legs. You do not need to wake from sleeping to walk. Please sleep in a bed or couch to prevent kinking at the hips and knees. Please take your incentive spirometer (your lung reservations and ticketing agent) home with you and use it for the next few days to prevent pneumonias. You may shower, no hot tubs, baths or swimming pools. Please call the office with any questions or concerns such as increasing abdominal pain, fever, chills, shortness of breath, chest pain, leg pain or swelling, or redness or drainage from your incisions. Do not hesitate to contact the office with any questions at . The patient's medical history has been reviewed and they are considered low risk for post op DVT and therefore DVT prophylaxis is not considered necessary. Abdon el after surgery was reviewed. The patient has not disclosed any travel plans during the first 30 days after surgery and they have been advised that within the first 30 days after surgery any bus, plane, train or car travel over 2 hours in duration is contraindicated due to the possibility of developing blood clots from immobility. Any travel, needs to include periods of ambulation of 10 minutes in duration every 2 hours. The patient was instructed to discuss any plans for travel during this period with their bariatric surgeon. Assessment: stable, post op sleeve gastrectomy
[2021-08-25] MEDS: Famotidine/PF 20 MG/2 ML VIAL IVPUSH ×2 (13:00→20:08)
[2021-08-25 13:34] LABS: Hematocrit 38.9 % (37.0-47.0); Hemoglobin 12.8 g/dl (12.0-16.0)
[2021-08-25] MEDS: fentaNYL citrate/PF 100 MCG/2 ML VIAL 25 MCG IVPUSH ×4 (13:47→14:05)
[2021-08-25] MEDS: Metoclopramide HCl 10 MG/2 ML VIAL IVPUSH ×2 (13:48→21:40)
[2021-08-25 13:49] LABS: Anion Gap 16 (12-20); Blood Urea Nitrogen 9 mg/dL (9-16); Calcium 9.1 mg/dL (8.4-10.2); Carbon Dioxide 23 mmol/L (22-29); Chloride 102 mmol/L (96-108); Creatinine Clr Calc Pharmacy 88.8; Estimated Glomerular Filt Rate > 60; Glucose Random 125 mg/dL (60-115); Sodium 137 mmol/L (135-145)
--- NOTE | 2021-08-25 14:32 | PHA.MEDREC ---
Pharmacy Consult ? Medication Reconciliation Pharmacy has completed the medication reconciliation.
[2021-08-25] MEDS: ondansetron HCL 4 MG/2 ML VIAL IVPUSH ×2 (15:56→23:51)
[2021-08-25] MEDS: lisinopriL 10 MG TABLET PO (16:37)
[2021-08-25] MEDS: LORazepam 0.5 MG TABLET 0.25 MG PO (16:37)
[2021-08-25] MEDS: HYDROmorphone HCl 0.5 MG/0.5 ML SYRINGE 0.25 MG IVPUSH ×2 (17:16→21:39)
--- NOTE | 2021-08-25 17:47 | PC.NURSE ---
bp 186/99 pulse 95,patient c/o heartburn. Gabo Wright notified,patient received one dose of lisinopril and ativan, later dilaudid for pain. Vomited a very small amt. of sputum,asleep now.
[2021-08-25] MEDS: 0.9 % Sodium Chloride Flush 3 ML SYRINGE IVFLUSH (23:51)
[2021-08-26] MEDS: Lactated Ringers 1,000 ML 100 ML IVCONT (01:19)
[2021-08-26] MEDS: HYDROmorphone HCl 0.5 MG/0.5 ML SYRINGE 0.25 MG IVPUSH (02:48)
[2021-08-26] MEDS: LORazepam 0.5 MG TABLET 0.25 MG PO (02:48)
[2021-08-26 03:00] VITALS: BP 155/81; PULSE 88; RESP 18; TEMP 37.5; O2SAT 95
[2021-08-26 05:52] LABS: MANUAL DIFF FLAG NO
[2021-08-26 05:55] LABS: Basophils Percent Auto 0.1 % (0-2); Hematocrit 37.2 % (37.0-47.0); Hemoglobin 12.4 g/dl (12.0-16.0); Imm Gran Abs Auto 0.08 X10*3/uL (0.00-0.03); Imm Gran Pct Auto 0.5 % (0.0-0.4); Lymphocytes Absolute Auto 1.2 X10*3/uL (1.2-4.9); Lymphocytes Percent Auto 6.9 % (20-40); Mean Corpuscular HGB Conc 33.3 g/dl (31.0-35.0); Mean Corpuscular Hemoglobin 29.1 pg (27.0-33.0); Mean Corpuscular Volume 87.3 fL (80.0-98.0); Mean Platelet Volume 11.7 fL (9.4-12.3); Monocytes Absolute Auto 0.8 X10*3/uL (0.1-1.2); Monocytes Percent Auto 4.6 % (2-11); Neutrophils Absolute Auto 14.6 x10*3/uL (2.0-8.3); Neutrophils Percent Auto 87.9 % (45-73); Platelet Count 371 X10*3/uL (160-400); Red Blood Count 4.26 X10*6/uL (4.20-5.50); Red Cell Distribution Width 11.8 % (11.0-16.0); White Blood Count 16.6 X10*3/uL (4.8-10.8)
[2021-08-26] MEDS: ondansetron HCL 4 MG/2 ML VIAL IVPUSH (05:56)
[2021-08-26 06:09] LABS: Anion Gap 15 (12-20); Blood Urea Nitrogen 8 mg/dL (9-16); Calcium 9.8 mg/dL (8.4-10.2); Carbon Dioxide 26 mmol/L (22-29); Chloride 100 mmol/L (96-108); Estimated Glomerular Filt Rate > 60; Glucose Random 112 mg/dL (60-115); Potassium 4.3 mmol/L (3.3-5.1); Sodium 137 mmol/L (135-145)
[2021-08-26 07:00] VITALS: BP 146/88; PULSE 74; RESP 18; TEMP 36.8; O2SAT 97
[2021-08-26] MEDS: Famotidine/PF 20 MG/2 ML VIAL IVPUSH (08:30)
--- NOTE | 2021-08-26 08:59 | MHC.CM.PN ---
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 Patient has received the J&J covid vax and a booster.Patient has been medically cleared for dc to home today, self care.PCP is Dr. Janene Rea.
--- NOTE | 2021-08-26 13:02 | HO.POSTANES ---
Post Anesthesia Evaluation Post Anesthesia Evaluation Vital Signs: Vital Signs Temp Pulse Resp BP Pulse Ox 08/26/21 07:00 98.2 F 74 18 146/88 H 97 08/26/21 03:00 99.5 F 88 18 155/81 H 95 Anesthesia: General Endotracheal-GETA Mental Status: Awake Pain Control: Satisfactory Nausea/Vomiting: None Hydration: Adequate Anesthesia-Related Issues: No Anes. Related Issues
== END 2021-08-26 10:12 | disposition home or self-care (01) | DRG 403 ==
LOC: HO.SSSA 12:51 → HO.S3 13:53
PROVIDERS: Physician Assistant; Physician Assistant Surgical; Admitting Provider Surgery; PCP Nurse Practitioner Family; Visit Provider Surgery
PROC: 0DB64Z3 Excision of Stomach, Percutaneous Endoscopic Approach, Vertical (ICD-10-PCS; CPT 43845; principal; 2021-08-25 10:10)
DX: E66.01 Morbid (severe) obesity due to excess calories (principal); K76.0 Fatty (change of) liver, not elsewhere classified; I10 Essential (primary) hypertension; D75.839 Thrombocytosis, unspecified; K21.9 Gastro-esophageal reflux disease without esophagitis; G47.33 Obstructive sleep apnea (adult) (pediatric); Z20.822 Contact with and (suspected) exposure to COVID-19; Z68.31 Body mass index [BMI] 31.0-31.9, adult; Z99.89 Dependence on other enabling machines and devices; Z79.899 Other long term (current) drug therapy
CPT/HCPCS: 36415; 80048; 80053; 80061; 83036; 83525; 84443; 85014; 85018; 85025; 85610; 85730; 86140; 86850; 86900; 86901; 87635; 88307; 88342; 99024; A4649; J0131; J0690; J1100; J1170; J2250; J2405; J2765; J3010

== ENCOUNTER → 2021-09-01 14:28 | Outpatient (BNVA) | payer BC, SELFPAY | PROVIDERS: PCP Nurse Practitioner Family; Visit Provider Surgery | DX: Z13.89 Encounter for screening for other disorder (principal) ==

== ENCOUNTER → 2021-09-15 10:38 | Outpatient (BNVA) | payer BC, SELFPAY | PROVIDERS: PCP Nurse Practitioner Family; Visit Provider Physician Assistant | DX: Z13.89 Encounter for screening for other disorder (principal) ==

== ENCOUNTER → 2021-09-21 08:17 | Outpatient (BNVA) | payer BC, SELFPAY | PROVIDERS: PCP Nurse Practitioner Family; Visit Provider Physician Assistant | DX: Z13.89 Encounter for screening for other disorder (principal) ==

== ENCOUNTER → 2021-10-28 15:06 | Outpatient (BNVA) | payer BC, SELFPAY | PROVIDERS: PCP Nurse Practitioner Family; Visit Provider Physician Assistant | DX: Z13.89 Encounter for screening for other disorder (principal) ==

== ENCOUNTER 2022-03-24 06:21 | Outpatient (REF) | payer BC, SELFPAY ==
[2022-03-24 06:33] LABS: MANUAL DIFF FLAG NO
[2022-03-24 07:37] LABS: Basophils Absolute Auto 0.1 X10*3/uL (0.0-0.2); Basophils Percent Auto 0.6 % (0-2); Eosinophils Absolute Auto 0.2 X10*3/uL (0.0-0.4); Eosinophils Percent Auto 1.9 % (0-4); Hematocrit 42.8 % (37.0-47.0); Hemoglobin 14.2 g/dl (12.0-16.0); Imm Gran Abs Auto 0.02 X10*3/uL (0.00-0.03); Imm Gran Pct Auto 0.2 % (0.0-0.4); Lymphocytes Absolute Auto 2.2 X10*3/uL (1.2-4.9); Lymphocytes Percent Auto 25.8 % (20-40); Mean Corpuscular HGB Conc 33.2 g/dl (31.0-35.0); Mean Corpuscular Hemoglobin 29.5 pg (27.0-33.0); Mean Platelet Volume 11.4 fL (9.4-12.3); Monocytes Absolute Auto 0.4 X10*3/uL (0.1-1.2); Monocytes Percent Auto 4.9 % (2-11); Neutrophils Absolute Auto 5.6 x10*3/uL (2.0-8.3); Neutrophils Percent Auto 66.6 % (45-73); Platelet Count 400 X10*3/uL (160-400); Red Blood Count 4.81 X10*6/uL (4.20-5.50); White Blood Count 8.4 X10*3/uL (4.8-10.8)
[2022-03-24 07:48] LABS: Estimated Average Glucose 100 mg/dL; Hemoglobin A1c % 5.1 %
[2022-03-24 08:20] LABS: Alanine Aminotransferase 17 U/L (0-31); Albumin Level 4.6 g/dL (3.5-5.0); Alkaline Phosphatase 68 U/L (39-117); Anion Gap 15 (12-20); Aspartate Amino Transferase 18 U/L (5-31); Bilirubin Total 1.3 mg/dL (0.0-1.0); Blood Urea Nitrogen 17 mg/dL (9-16); C Reactive Protein 0.42 mg/dL (< or = 0.50); Calcium 9.9 mg/dL (8.4-10.2); Carbon Dioxide 29 mmol/L (22-29); Chloride 102 mmol/L (96-108); Cholesterol 197 mg/dL; Estimated Glomerular Filt Rate > 60; Glucose Random 91 mg/dL (60-115); HDL Cholesterol 47 mg/dL; Iron 117 mcg/dL (30-160); LDL Cholesterol Calculated 131 mg/dl; Percent Iron Saturation 32 % (15-50); Potassium 4.5 mmol/L (3.3-5.1); Sodium 141 mmol/L (135-145); Total Iron Binding Capacity 363 mcg/dL (228-428); Total Protein 7.9 g/dL (6.5-8.0); Triglycerides 95 mg/dL; Unsaturated Iron Binding 246 ug/dL
[2022-03-24 08:42] LABS: Ferritin 90 ng/mL (10-250); Insulin 11 uU/mL (2-29); TSH reflex Free T4 1.79 uIU/mL (0.32-4.0); Vitamin D 25-OH Total 55.5 ng/mL (>30)
[2022-03-24 08:51] LABS: Folate 17.9 ng/mL (> or = 4.0); Vitamin B12 482 pg/mL (200-900)
[2022-03-25 14:27] LABS: Calcium (PTHI) 9.9 mg/dL (8.6-10.2); PTHI 34 pg/mL (16-77)
[2022-03-28 22:27] LABS: Zinc 95 mcg/dL (60-130)
[2022-03-29 14:01] LABS: Vitamin B1 27 nmol/L (8-30)
[2022-03-30 17:42] LABS: Vitamin A 41 mcg/dL (38-98)
== END 2022-03-24 06:22 | disposition home or self-care (01) ==
LOC: HO.LAB 06:21
PROVIDERS: Visit Provider Physician Assistant Surgical
DX: Z98.84 Bariatric surgery status (principal)
CPT/HCPCS: 36415; 80053; 80061; 82306; 82607; 82728; 82746; 83036; 83525; 83540; 83970; 84425; 84443; 84590; 84630; 85025; 86140

== ENCOUNTER → 2022-05-03 09:22 | Outpatient (BNVA) | payer BC, SELFPAY | PROVIDERS: Visit Provider Dietitian, Registered | DX: E66.9 Obesity, unspecified (principal); Z98.84 Bariatric surgery status | CPT/HCPCS: 97803 ==

== ENCOUNTER 2022-06-17 08:00 | Outpatient (REF) | payer BC, SELFPAY ==
[2022-06-17 09:27] LABS: MANUAL DIFF FLAG NO
[2022-06-17 09:40] LABS: Basophils Percent Auto 0.4 % (0-2); Eosinophils Absolute Auto 0.1 X10*3/uL (0.0-0.4); Eosinophils Percent Auto 0.7 % (0-4); Hematocrit 36.6 % (37.0-47.0); Hemoglobin 12.3 g/dl (12.0-16.0); Imm Gran Abs Auto 0.04 X10*3/uL (0.00-0.03); Imm Gran Pct Auto 0.4 % (0.0-0.4); Lymphocytes Percent Auto 18.5 % (20-40); Mean Corpuscular HGB Conc 33.6 g/dl (31.0-35.0); Mean Corpuscular Hemoglobin 29.3 pg (27.0-33.0); Mean Corpuscular Volume 87.1 fL (80.0-98.0); Monocytes Absolute Auto 0.5 X10*3/uL (0.1-1.2); Monocytes Percent Auto 4.5 % (2-11); Neutrophils Percent Auto 75.5 % (45-73); Platelet Count 338 X10*3/uL (160-400); Red Cell Distribution Width 11.7 % (11.0-16.0); White Blood Count 10.6 X10*3/uL (4.8-10.8)
[2022-06-17 10:15] LABS: Erythrocyte Sedimentation Rate 19 MM/HR (0-20)
[2022-06-17 10:17] LABS: Alanine Aminotransferase 18 U/L (0-31); Albumin Level 4.2 g/dL (3.5-5.0); Alkaline Phosphatase 59 U/L (39-117); Anion Gap 11 (12-20); Aspartate Amino Transferase 17 U/L (5-31); Blood Urea Nitrogen 21 mg/dL (9-16); C Reactive Protein 0.45 mg/dL (< or = 0.50); Calcium 9.5 mg/dL (8.4-10.2); Carbon Dioxide 27 mmol/L (22-29); Chloride 105 mmol/L (96-108); Estimated Glomerular Filt Rate > 60; Glucose Random 89 mg/dL (60-115); Potassium 3.9 mmol/L (3.3-5.1); Sodium 139 mmol/L (135-145); Total Protein 7.3 g/dL (6.5-8.0)
[2022-06-17 10:29] LABS: Appearance Urine Cloudy; Color Urine Dark Yellow; Glucose Urine UA Negative (Negative); Leukocyte Esterase Urine Negative (Negative); Nitrite Urine Negative (Negative); Urine Blood Negative (Negative); Urine Ketones Negative (Negative); Urine Protein Negative (Neg-Trace)
[2022-06-17 10:32] LABS: TSH reflex Free T4 0.92 uIU/mL (0.32-4.0)
[2022-06-17 10:33] LABS: Bacteria Urine 1+ (None Seen); Hyaline Casts Urine 0-2 /LPF (0-2); RBC Urine 0-2 /HPF (0-2); WBC Urine 0-5 /HPF (0-5)
[2022-06-17 10:37] LABS: HBS Num1 9.21 mIU/mL (0-7.99); HBc Num1 0.07 S/CO (0.00-0.79); HBsAGNum1 0.18 S/CO (0.00-0.99); Hepatitis A Antibody IgM 0.12 Index (0-0.79); Hepatitis B Core Antibody Nonreactive (Nonreactive); Hepatitis B Surface Antigen Negative (Negative); ~HepC Num1 0.12 S/CO (0.00-0.79); ~Hepatitis A Antibody IgM Nonreactive (Nonreactive); ~Hepatitis C Antibody Nonreactive (Nonreactive)
[2022-06-17 11:26] LABS: Creatinine Urine 120.74 mg/dL; Protein/Creatinine Ratio, Ur 0.08 (<0.2); Total Protein Urine Random 10 mg/dL (<12)
[2022-06-17 11:51] LABS: HBS Num2 9.23 mIU/mL (0-7.99); HBS Num3 9.22 mIU/mL (0-7.99); ~Hepatitis B Surface Antibody GRAYZONE (Nonreactive)
[2022-06-18 11:09] LABS: Thyroglobulin Antibodies <1 IU/mL (< or = 1); Thyroid Peroxidase Antibodies <1 IU/mL (<9)
[2022-06-18 17:08] LABS: Complement C3 137 mg/dL (83-193)
[2022-06-18 19:37] LABS: Anti DNA DS Antibody 1 IU/mL; Antibody to SS-A Antigen <1.0 NEG AI (<1.0 NEG); Antibody to SS-B Antigen <1.0 NEG AI (<1.0 NEG); SM/Ribonucleoprotein Ab <1.0 NEG AI (<1.0 NEG); Smith Protein <1.0 NEG AI (<1.0 NEG)
[2022-06-18 21:04] LABS: Prot Elec - Albumin 4.3 g/dL (3.8-4.8); Prot Elec - Alpha1 0.3 g/dL (0.2-0.3); Prot Elec - Alpha2 0.8 g/dL (0.5-0.9); Prot Elec - Beta 1 0.5 g/dL (0.4-0.6); Prot Elec - Beta 2 0.4 g/dL (0.2-0.5); Prot Elec - Gamma 1.3 g/dL (0.8-1.7); Prot Elec - Total Protein 7.5 g/dL (6.1-8.1)
[2022-06-19 13:34] LABS: TS Negative Control Passed; TS Panel A 0; TS Panel B 0; TS Positive Control Passed; TSpotTB Negative (Negative)
[2022-06-21 16:23] LABS: Anti Nuclear Antibody Screen POSITIVE (NEGATIVE); Anti Nuclear Antibody Titer 1:40 titer
[2022-06-22 18:07] LABS: IgA 348 mg/dL (47-310); IgG 1474 mg/dL (600-1640); IgM 75 mg/dL (50-300)
[2022-06-22 22:58] LABS: Liver Kidney Microsomal Ab <=20.0 U (<=20.0)
[2022-06-23 11:19] LABS: Mitochondrial Antibodies NEGATIVE (NEGATIVE)
[2022-06-23 13:14] LABS: PTT (LAC) Screen 29 sec (<=40)
[2022-06-23 15:04] LABS: DNAds, Crithidia Antibody Negative (Negative)
[2022-06-23 22:32] LABS: Smooth Muscle Antibody <20 U (<20)
[2022-06-24 14:24] LABS: Beta-2 Glycoprotein IgA <2.0 U/mL (<20.0); Beta-2 Glycoprotein IgG <2.0 U/mL (<20.0); Beta-2 Glycoprotein IgM <2.0 U/mL (<20.0)
[2022-06-24 15:28] LABS: Cardiolipin IgG Ab <2.0 GPL-U/mL; Cardiolipin IgM Ab <2.0 MPL-U/mL
== END 2022-06-17 08:01 | disposition home or self-care (01) ==
LOC: HO.LAB 08:00
PROVIDERS: Visit Provider Student in an Organized Health Care Education/Training Program
DX: R76.8 Other specified abnormal immunological findings in serum (principal); M35.00 Sjogren syndrome, unspecified; D68.61 Antiphospholipid syndrome; R53.83 Other fatigue; E66.01 Morbid (severe) obesity due to excess calories; Z11.59 Encounter for screening for other viral diseases; Z11.7 Encounter for testing for latent tuberculosis infection; Z79.4 Long term (current) use of insulin; Z98.84 Bariatric surgery status
CPT/HCPCS: 36415; 80053; 81001; 82595; 82784; 84156; 84165; 84443; 85025; 85597; 85613; 85652; 85730; 86015; 86038; 86039; 86140; 86146; 86147; 86160; 86225; 86235; 86255; 86256; 86334; 86376; 86481; 86704; 86706; 86709; 86800; 86803; 87340

== ENCOUNTER → 2022-07-13 09:17 | Outpatient (BNVA) | payer BC, SELFPAY | PROVIDERS: Visit Provider Physician Assistant Surgical | DX: Z13.89 Encounter for screening for other disorder (principal) ==

== ENCOUNTER → 2022-08-25 10:26 | Outpatient (BNVA) | payer BC, SELFPAY | PROVIDERS: Visit Provider Student in an Organized Health Care Education/Training Program | DX: Z13.89 Encounter for screening for other disorder (principal) ==

== ENCOUNTER → 2022-09-17 11:51 | Outpatient (BNVA) | payer BC, SELFPAY | PROVIDERS: Visit Provider Physician Assistant Surgical | DX: Z98.84 Bariatric surgery status (principal); E66.3 Overweight ==

== ENCOUNTER 2022-09-24 08:39 | Outpatient (REF) | payer BC, SELFPAY ==
[2022-09-24 09:01] LABS: MANUAL DIFF FLAG NO
[2022-09-24 10:04] LABS: Basophils Percent Auto 0.5 % (0-2); Eosinophils Absolute Auto 0.1 X10*3/uL (0.0-0.4); Eosinophils Percent Auto 0.8 % (0-4); Imm Gran Abs Auto 0.03 X10*3/uL (0.00-0.03); Imm Gran Pct Auto 0.3 % (0.0-0.4); Lymphocytes Absolute Auto 2.2 X10*3/uL (1.2-4.9); Lymphocytes Percent Auto 24.9 % (20-40); Mean Corpuscular HGB Conc 33.3 g/dl (31.0-35.0); Mean Corpuscular Hemoglobin 29.7 pg (27.0-33.0); Monocytes Absolute Auto 0.4 X10*3/uL (0.1-1.2); Monocytes Percent Auto 4.1 % (2-11); Neutrophils Percent Auto 69.4 % (45-73); Platelet Count 381 X10*3/uL (160-400); Red Blood Count 4.72 X10*6/uL (4.20-5.50); Red Cell Distribution Width 11.6 % (11.0-16.0); White Blood Count 8.6 X10*3/uL (4.8-10.8)
[2022-09-24 10:15] LABS: Estimated Average Glucose 105 mg/dL; Hemoglobin A1C 132.5251 umol/L; Hemoglobin A1c % 5.3 %
[2022-09-24 11:18] LABS: Alanine Aminotransferase 19 U/L (0-31); Albumin Level 4.7 g/dL (3.5-5.0); Alkaline Phosphatase 61 U/L (39-117); Anion Gap 14 (12-20); Aspartate Amino Transferase 17 U/L (5-31); Blood Urea Nitrogen 18 mg/dL (9-16); C Reactive Protein 0.22 mg/dL (< or = 0.50); Calcium 9.9 mg/dL (8.4-10.2); Carbon Dioxide 28 mmol/L (22-29); Chloride 104 mmol/L (96-108); Cholesterol 228 mg/dL; Estimated Glomerular Filt Rate > 60; Glucose Random 85 mg/dL (60-115); HDL Cholesterol 52 mg/dL; Iron 211 mcg/dL (30-160); LDL Cholesterol Calculated 158 mg/dl; Percent Iron Saturation 59 % (15-50); Potassium 4.5 mmol/L (3.3-5.1); Sodium 141 mmol/L (135-145); Total Iron Binding Capacity 355 mcg/dL (228-428); Total Protein 8.1 g/dL (6.5-8.0); Triglycerides 92 mg/dL; Unsaturated Iron Binding 144 ug/dL
[2022-09-24 11:29] LABS: Ferritin 77 ng/mL (10-250); Folate 18.6 ng/mL (> or = 4.0); Insulin 7 uU/mL (2-29); TSH reflex Free T4 1.22 uIU/mL (0.32-4.0); Vitamin B12 753 pg/mL (200-900); Vitamin D 25-OH Total 64.2 ng/mL (>30)
[2022-09-27 16:38] LABS: Calcium (PTHI) 9.9 mg/dL (8.6-10.2); PTHI 34 pg/mL (16-77)
[2022-09-29 06:09] LABS: Zinc 104 mcg/dL (60-130)
[2022-10-01 00:53] LABS: Vitamin A 49 mcg/dL (38-98)
[2022-10-02 14:29] LABS: Vitamin B1 32 nmol/L (8-30)
== END 2022-09-24 08:40 | disposition home or self-care (01) ==
LOC: HO.LAB 08:39
PROVIDERS: Visit Provider Physician Assistant Surgical
DX: K91.2 Postsurgical malabsorption, not elsewhere classified (principal); E66.3 Overweight; Z98.84 Bariatric surgery status
CPT/HCPCS: 36415; 80053; 80061; 82306; 82607; 82728; 82746; 83036; 83525; 83540; 83970; 84425; 84443; 84590; 84630; 85025; 86140

== ENCOUNTER 2023-06-01 09:13 | Outpatient (AMB) | payer BC, SELFPAY ==
--- NOTE | 2023-06-01 09:08 | MHC.AMNUTRGE ---
Intake Intake Visit Reasons: VIDEO PO LSG 08/25/21 Allergies Seasonal Allergies Allergy (Mild, Verified 08/25/22 10:30) runny nose, itchy and watery eyes HPI Nutrition Presentation Details [facility] [place] 08/25/21 Dr. Victoria Diet Assmnt Details Complains of abdominal discomfort, upper GI pain, full and bloated , even when not eating - pt states this has been a chronic issue. reports I don't like the way food makes me feel ?. no constipation , no nausea, mild reflux . using celebrate 4in1 shake premier shake in coffee lunch protein, veg eritrean yogurt or jerky stick dinner protein and veg - she isn't sure of her potions, isn't sure if she is eating mindfully, unable to determine if eating too much, too quickly . Dietary counseling reduction Diagnosis Nutrition problem #1 overweight/obesity As related to (etiology) #1 excess energy intake and physical inactivity As evidenced by (sign/symptom) #1 high BMI (resolved) Monitoring/Goals Nutrition problem monitoring total energy intake, level of knowledge/skill, total PRO intake, total CHO intake, weight and oral fluids Outcome progress progressing Learning/Education Readiness to learn excellent Stages of change action Most Recent Diabetes Results: Cholesterol 228 mg/dL 09/24/22 HDL Cholesterol 52 mg/dL 09/24/22 Triglycerides 92 mg/dL 09/24/22 Creatinine 0.78 mg/dL (0.5-1.4) 09/24/22 Blood Urea Nitrogen 18 mg/dL (9-16) H 09/24/22 Sodium 141 mmol/L (135-145) 09/24/22 Potassium 4.5 mmol/L (3.3-5.1) 09/24/22 Chloride 104 mmol/L (96-108) 09/24/22 Carbon Dioxide 28 mmol/L (22-29) 09/24/22 Calcium 9.9 mg/dL (8.4-10.2) 09/24/22 AST 17 U/L (5-31) 09/24/22 ALT 19 U/L (0-31) 09/24/22 Total Protein 8.1 g/dL (6.5-8.0) H 09/24/22 Albumin 4.7 g/dL (3.5-5.0) 09/24/22 [facility] Medical History Adjustment disorder, unspecified BMI 34.0-34.9,adult BMI 35.0-35.9,adult BMI 36.0-36.9,adult Dry mouth GERD (gastroesophageal reflux disease) Hypertension Morbid obesity Obesity PONV (postoperative nausea and vomiting) Sleep apnea with use of continuous positive airway pressure (CPAP) Steatosis, liver Thrombocytosis Vitamin B12 deficiency Vitamin D deficiency Surgical History Hx of breast reduction, elective Hx of cosmetic surgery Hx of hysterectomy S/P laparoscopic sleeve gastrectomy Family History Mother Acute Crohn's disease Father High cholesterol Hypertension Brother Lupus Son Leukemia Social History Household Members: Spouse Housing: House Are you a primary healthcare risk control consultant to a significant other at home: No Do you presently have visiting nurse or other home services: No Alcohol intake: current Alcohol intake frequency: does not drink Comment: heartburn Patient Tobacco Use Status: Never used Tobacco service: No Current occupational status: employed Current occupation: bindery library technical assistant Assessment & Plan Assessment & Plan (1) S/P laparoscopic sleeve gastrectomy: Comment: 08/25/21 Code(s): Z98.84 - Bariatric surgery status Plan communicate as needed Patient Instructions: recommended keeping a food journal with symptoms . rec probiotic and digestive enzymes as a trial. rec GI referral. Rec labs . Provided pt with mindful eating tips and resources. pt will communicate as needed and has next appt with PA in 3 weeks as previously scheduled. Telehealth Telehealth Location of provider rendering services: practice address Location of patient: address on file Patient Identification confirmed using: Name, : Yes Telehealth method: video Patient verbally consented to treatment: Yes Patient verbally consented to billing insurance company: Yes Patient informed of any privacy concerns related to visit: Yes Minutes spent on Phone/Video with Pt.: 30 Coding Level of Care Code Nutr Indiv Subseq ([id number]) Diagnoses S/P laparoscopic sleeve gastrectomy Z98.84 Time Spent (min) 30
== END 2023-06-01 09:41 | disposition home or self-care (01) ==
LOC: HO.HBS 09:13
PROVIDERS: PCP Family Medicine; Visit Provider Dietitian, Registered
DX: Z98.84 Bariatric surgery status (principal)

== ENCOUNTER → 2023-06-01 09:13 | Outpatient (BNVA) | payer BC, SELFPAY | PROVIDERS: PCP Family Medicine; Visit Provider Dietitian, Registered | DX: E66.9 Obesity, unspecified (principal); Z98.84 Bariatric surgery status; Z71.3 Dietary counseling and surveillance | CPT/HCPCS: 97803 ==

== ENCOUNTER 2023-07-20 11:19 | Outpatient (REF) | payer BC, SELFPAY ==
[2023-07-20 11:40] LABS: MANUAL DIFF FLAG NO
[2023-07-20 11:57] LABS: Basophils Percent Auto 0.5 % (0-2); Eosinophils Absolute Auto 0.1 X10*3/uL (0.0-0.4); Eosinophils Percent Auto 0.9 % (0-4); Hematocrit 40.3 % (37.0-47.0); Hemoglobin 13.8 g/dl (12.0-16.0); Imm Gran Abs Auto 0.02 X10*3/uL (0.00-0.03); Imm Gran Pct Auto 0.2 % (0.0-0.4); Lymphocytes Absolute Auto 2.2 X10*3/uL (1.2-4.9); Lymphocytes Percent Auto 25.2 % (20-40); Mean Corpuscular HGB Conc 34.2 g/dl (31.0-35.0); Mean Corpuscular Volume 87.6 fL (80.0-98.0); Mean Platelet Volume 10.6 fL (9.4-12.3); Monocytes Absolute Auto 0.5 X10*3/uL (0.1-1.2); Monocytes Percent Auto 6.2 % (2-11); Neutrophils Absolute Auto 5.8 x10*3/uL (2.0-8.3); Platelet Count 401 X10*3/uL (160-400); Red Cell Distribution Width 12.3 % (11.0-16.0); White Blood Count 8.7 X10*3/uL (4.8-10.8)
[2023-07-20 12:21] LABS: Estimated Average Glucose 97 mg/dL
[2023-07-20 12:25] LABS: Alanine Aminotransferase 19 U/L (0-31); Albumin Level 4.5 g/dL (3.5-5.0); Alkaline Phosphatase 61 U/L (39-117); Anion Gap 12 (12-20); Aspartate Amino Transferase 19 U/L (5-31); Bilirubin Total 0.8 mg/dL (0.0-1.0); Blood Urea Nitrogen 17 mg/dL (9-16); C Reactive Protein 0.29 mg/dL (< or = 0.50); Calcium 9.5 mg/dL (8.4-10.2); Carbon Dioxide 28 mmol/L (22-29); Chloride 105 mmol/L (96-108); Cholesterol 218 mg/dL (<200); Estimated Glomerular Filt Rate > 60; Glucose Random 86 mg/dL (60-115); HDL Cholesterol 49 mg/dL (>40); Iron 106 mcg/dL (30-160); LDL Cholesterol Calculated 145 mg/dL (<100); Percent Iron Saturation 34 % (15-50); Potassium 4.1 mmol/L (3.3-5.1); Sodium 141 mmol/L (135-145); Total Iron Binding Capacity 314 mcg/dL (228-428); Triglycerides 120 mg/dL (<150); Unsaturated Iron Binding 208 ug/dL
[2023-07-20 12:49] LABS: Ferritin 73 ng/mL (10-250); Vitamin D 25-OH Total 39.7 ng/mL (>30)
[2023-07-20 12:56] LABS: Insulin 4 uU/mL (2-29)
[2023-07-20 12:57] LABS: Folate 13.7 ng/mL (> or = 4.0); Vitamin B12 596 pg/mL (200-900)
[2023-07-22 14:59] LABS: Zinc 83 mcg/dL (60-130)
[2023-07-23 06:28] LABS: Vitamin A 49 mcg/dL (38-98)
[2023-07-25 13:58] LABS: Vitamin B1 16 nmol/L (8-30)
== END 2023-07-20 11:20 | disposition home or self-care (01) ==
LOC: HO.LAB 11:19
PROVIDERS: PCP Pediatrics; Visit Provider Physician Assistant Surgical
DX: Z98.84 Bariatric surgery status (principal)
CPT/HCPCS: 36415; 80053; 80061; 82306; 82607; 82728; 82746; 83036; 83525; 83540; 84425; 84443; 84590; 84630; 85025; 86140

== ENCOUNTER 2023-08-16 10:18 | Outpatient (AMB) | payer BC, SELFPAY ==
--- NOTE | 2023-08-16 10:00 | MHC.OFFVISWM ---
Intake VS Expanded 08/16/23 10:08 Height 5 ft 3 in Weight 160 lb BMI 28.3 Intake Visit Reasons: VIDEO PO LSG 08/25/21 Allergies Seasonal Allergies Allergy (Mild, Verified 08/25/22 10:30) runny nose, itchy and watery eyes Medication List - Last Reconciled 08/16/23 by CORWIN Matthews acetaminophen (Tylenol Extra Strength) 500 mg PO Q6H PRN inulin (Fiber Gummies) 2 grams PO BID lisinopril 5 mg PO DAILY multivitamin 1 tab PO DAILY HPI HPI Comments History of Present Illness Details This?is a 48?yo female who is s/p LSG 08/25/2021. Presents for 2 year post op visit. Weight at last visit on 09/17/2022 was 143 pounds with a BMI of 25.3, weight today is 160 pounds, representing a 17 pound weight gain with a BMI today of 28.3.? Pt reports illnesses over the last few months, COVIDx2. [place] better the last few weeks; purchased probiotics/prebiotics, but every time she eats feels crappy , bloated, uncomfortable, had happened also before surgery. Trying to keep portions small, eating slowly. Symptoms are not necessarily worse since surgery, worse in evening. Also had to restart BP med. Present meal plan includes: coffee in AM mixed with Premier protein (half premade) 1 shake per day- 2 scoops Celebrate in [employer] milk occasional ZP bar 2 small meals a day- 3oz protein + 4oz salad/veg rare coffee from [employer] Exercise routine includes: less lately due to illness, but started walking again has an exercise machine at home REPLACED BY [facility] Medical History Adjustment disorder, unspecified BMI 34.0-34.9,adult BMI 35.0-35.9,adult BMI 36.0-36.9,adult Dry mouth GERD (gastroesophageal reflux disease) Hypertension Morbid obesity Obesity PONV (postoperative nausea and vomiting) Sleep apnea with use of continuous positive airway pressure (CPAP) Steatosis, liver Thrombocytosis Vitamin B12 deficiency Vitamin D deficiency Surgical History Hx of breast reduction, elective Hx of cosmetic surgery Hx of hysterectomy S/P laparoscopic sleeve gastrectomy Family History Mother Acute Crohn's disease Father High cholesterol Hypertension Brother Lupus Son Leukemia Social History Household Members: Spouse Housing: House Are you a primary tire care manager to a significant other at home: No Do you presently have visiting nurse or other home services: No Alcohol intake: current Alcohol intake frequency: does not drink Comment: heartburn Patient Tobacco Use Status: Never used Tobacco service: No Current occupational status: employed 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 Reviewed eating/drinking slowly which pt reports she is doing. 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 New meal plan: coffee in AM with half Premier shake mixed in 7-9am Celebrate shake 1 scoop in 8oz 11am-1pm ZP bar 3-5pm ZP bar 6:30pm dinner- 4 forks protein, 6-8forks salad/veg Labs recently done, reviewed. RTC once UGI complete. Meal plan texted to pt. Encouraged her to text me between appts with any questions. Patient is overweight and is not considered stable at this time. I spent a total of 30 minutes reviewing/updating records, examining the patient and counseling the patient on weight management as detailed above. Orders: Orders [place] upper GI w air Today R14.0 - Abdominal distension (gaseous), Z98.84 - Bariatric surgery status Telehealth Telehealth Location of provider rendering services: practice address Location of patient: address on file Patient Identification confirmed using: Name, : Yes Telehealth method: voice only Patient verbally consented to treatment: Yes Patient verbally consented to billing insurance company: Yes Patient informed of any privacy concerns related to visit: Yes Minutes spent on Phone/Video with Pt.: 15 Coding Level of Care Code Tele Est Pt Level 4 (13681) Diagnoses Overweight E66.3 S/P laparoscopic sleeve gastrectomy Z98.84 Bloating symptom R14.0
[2023-08-16 10:08] VITALS: BMI 28.3
== END 2023-08-16 10:45 | disposition home or self-care (01) ==
LOC: HO.HBS 10:18
PROVIDERS: PCP Pediatrics; Visit Provider Physician Assistant Surgical
DX: E66.3 Overweight (principal); Z68.28 Body mass index [BMI] 28.0-28.9, adult; Z90.3 Acquired absence of stomach [part of]; Z98.84 Bariatric surgery status; R14.0 Abdominal distension (gaseous)
CPT/HCPCS: 99442

== ENCOUNTER → 2023-08-16 10:18 | Outpatient (BNVA) | payer BC, SELFPAY | PROVIDERS: PCP Pediatrics; Visit Provider Physician Assistant Surgical ==